=== PATIENT | female | born 1955 | race Caucasian/White ===

== ENCOUNTER 2017-10-16 13:33 | Emergency (ER) | payer MEDICARE ==
[~2017-10-16] VITALS: Ht 167.6 cm; Wt 68.2 kg
[~2017-10-16 13:33] MED LIST: ACET-1600 PO; TRAM50TA2 PO; WARF2.5T PO
[2017-10-16 13:39] VITALS: BP 127/72
[2017-10-16] MEDS ORDERED: SODIUM CHLORIDE FLUSH 10ML SYR IVF ONE (14:30)
[2017-10-16 14:51] LABS: HEMATOCRIT 40.8 % (34.6-47.8); HEMOGLOBIN 13.8 g/dL (11.7-16.4); WHITE BLOOD COUNT 7.4 x10^3/uL (3.4-10)
[2017-10-16 15:01] LABS: BLOOD UREA NITROGEN 17 mg/dL (7-18)
[2017-10-16] MEDS ORDERED: OMNIPAQUE 350 MG/ML, 100ML BOTTLE ONE (15:41)
[2017-10-16] MEDS ORDERED: DEXAMETHASONE 4 MG/ML, 5ML ONE (16:15)
[2017-10-16] MEDS ORDERED: DEXAMETHASONE 4 MG/ML, 1ML PO ONE (16:30)
== END 2017-10-16 16:20 | disposition home or self-care (01) ==
LOC: ED 16:14
DX: L04.0 Acute lymphadenitis of face, head and neck (principal)
CPT/HCPCS: 36415; 70491; 80048; 82040; 85025; 99285; J1100; Q9967

== ENCOUNTER → 2017-11-05 | Outpatient (CLI) | payer MEDICARE ==
[~2017-11-05] MED LIST changes: +AMIT25TA PO; +BUPR150T73 PO; +CHOL100012 PO; +DICL100G19 TP; +FLUO40CA9 PO; +HYDR12.53 PO; +LEVO112T4 PO; +LEVO15TA6 PO; +LISI5TAB7 PO; +MAGN400C PO; +MELA5TAB19 PO; +METO25TA35 PO; +MULT-90 PO; +OMEP40CA6 PO; +PILO5TAB PO; +TRAZ50TA18 PO; +VITA150T PO; +WARF5TAB7 PO
[2017-11-05 13:24] LABS: BASOPHILS # (AUTO) 0.02 x10^3/uL (0-0.1); BASOPHILS % (AUTO) 0 % (0-1); EOSINOPHILS # (AUTO) 0.11 x10^3/uL (0-0.4); EOSINOPHILS % (AUTO) 2 % (1-7); LYMPHOCYTES # (AUTO) 1.85 x10^3/uL (1-3.4); LYMPHOCYTES % (AUTO) 35 % (22-44); MD NO; MEAN CORPUSCULAR HEMOGLOBIN 30.6 pg (27.0-34.8); MEAN CORPUSCULAR HGB CONC 33.2 g/dL (32.4-35.8); MEAN CORPUSCULAR VOLUME 92.3 fL (80-100); MEAN PLATELET VOLUME 7.2 fL (7.4-10.4); MONOCYTES # (AUTO) 0.37 x10^3/uL (0.2-0.8); MONOCYTES % (AUTO) 7 % (2-9); NEUTROPHILS # (AUTO) 2.98 x10^3/uL (1.8-6.8); NEUTROPHILS % (AUTO) 56 % (42-75); PLATELET COUNT 264 x10^3/uL (130-400); RED BLOOD COUNT 4.16 x10^6/uL (3.82-5.3); RED CELL DISTRIBUTION WIDTH 15.3 % (9.6-15.2)
[2017-11-05 13:28] LABS: INTERNATIONAL NORMALIZED RATIO 1.88 (0.93-1.1); PROTHROMBIN TIME 19.3 Seconds (9.6-11.5)
[2017-11-05 13:55] LABS: ALANINE AMINOTRANSFERASE 78 U/L (12-78); ALBUMIN 3.7 g/dL (3.4-5.0); ANION GAP 6 mmol/L (5-15); CALCIUM 9.3 mg/dL (8.5-10.1); CHLORIDE 104 mmol/L (98-107)
[2017-11-05 13:57] LABS: CREATININE 1.01 mg/dL (0.55-1.02)
[2017-11-05 13:58] LABS: ALKALINE PHOSPHATASE 104 U/L (45-117); BILIRUBIN,TOTAL 0.4 mg/dL (0.2-1.0); TOTAL PROTEIN 7.1 g/dL (6.4-8.2)
== END | disposition home or self-care (01) ==
LOC: MERGE 11-03 10:30 → STAR 12:05
PROVIDERS: ATTEND Obstetrics & Gynecology Gynecology
DX: Z01.818 Encounter for other preprocedural examination (principal); R94.31 Abnormal electrocardiogram [ECG] [EKG]; E03.9 Hypothyroidism, unspecified; I10 Essential (primary) hypertension; C50.911 Malignant neoplasm of unspecified site of right female breast; Z79.01 Long term (current) use of anticoagulants
CPT/HCPCS: 36415; 71046; 80053; 85025; 85610; 85730; 93005

== ENCOUNTER 2017-11-13 07:18 | Day surgery (SDC) | payer MEDICARE ==
[~2017-11-13] VITALS: Ht 167.6 cm; Wt 70.0 kg
[~2017-11-13 07:18] MED LIST changes: -AMIT25TA PO; -METO25TA35 PO; -TRAZ50TA18 PO
[2017-11-13] MEDS ORDERED: AMIT25TA PO (08:07)
[2017-11-13] MEDS ORDERED: BUPR150T73 PO (08:07)
[2017-11-13] MEDS ORDERED: METO25TA35 PO (08:07)
[2017-11-13 08:08] VITALS: BP 103/67
[2017-11-13] MEDS ORDERED: LACTATED RINGERS 1,000 ML IV SCH (08:15)
[2017-11-13] MEDS ORDERED: METRONIDAZOLE PMX 500MG/100ML 100 ML IVPB ONE (08:30)
[2017-11-13] MEDS ORDERED: TRAZ50TA18 PO (08:35)
[2017-11-13] MEDS ORDERED: HEPARIN 5,000 UNITS/ML, 1ML ONE (08:43)
[2017-11-13] MEDS ORDERED: HEPARIN 5,000 UNITS/ML, 1ML SQ SCH (09:00)
[2017-11-13 09:03] LABS: INTERNATIONAL NORMALIZED RATIO 1.33 (0.93-1.1); PROTHROMBIN TIME 13.8 Seconds (9.6-11.5)
[2017-11-13] MEDS ORDERED: BUPIVACAINE/PF 0.25% ONE (09:46)
[2017-11-13] MEDS ORDERED: EPINEPHRINE 1 MG/ML, 1ML ONE (09:46)
[2017-11-13] MEDS ORDERED: SILVER NITRATE STICK TP ONE (09:46)
[2017-11-13] MEDS ORDERED: PROPOFOL 10 MG/ML, 20ML ONE (10:13)
[2017-11-13] MEDS ORDERED: LIDOCAINE-MPF 2% ,5ML ONE (10:13)
[2017-11-13] MEDS ORDERED: ROCURONIUM 10 MG/ML,10ML ONE (10:13)
[2017-11-13] MEDS ORDERED: DEXAMETHASONE 4 MG/ML, 1ML ONE ×2 (10:14)
[2017-11-13] MEDS ORDERED: ONDANSETRON 2MG/ML, 2ML ONE (10:14)
[2017-11-13] MEDS ORDERED: BUPIVACAINE/PF-EPI 0.25% 1:200K IM ONE (10:22)
[2017-11-13] MEDS ORDERED: FENTANYL PF 100 MCG/2ML ONE ×2 (10:25→11:24)
[2017-11-13] MEDS ORDERED: ONDANSETRON 2MG/ML, 2ML IVPush PRN (10:30)
[2017-11-13] MEDS ORDERED: FENTANYL PF 100 MCG/2ML IV PRN (10:30)
[2017-11-13] MEDS ORDERED: MEPERIDINE/PF 25MG/0.5ML IVPush PRN (10:30)
[2017-11-13] MEDS ORDERED: HYDROmorphone 1 MG/ML, 1ML IV PRN (10:30)
[2017-11-13] MEDS ORDERED: HYDROcodone/APAP 7.5-325MG/15ML UDC PO PRN (10:30)
[2017-11-13] MEDS ORDERED: OXYcodone 5 MG/5 ML ORAL.SOL UDC PO PRN (10:30)
[2017-11-13] MEDS ORDERED: ACETAMINOPHEN 325 MG TABLET PO PRN (10:30)
[2017-11-13] MEDS ORDERED: GLYCOPYRROLATE 0.2MG/1ML, 5ML ONE (10:44)
[2017-11-13] MEDS ORDERED: NEOSTIGMINE 1 MG/ML, 10ML ONE (10:44)
[2017-11-13] MEDS ORDERED: ACETAMINOPHEN 650 MG/20.3 ML UDC ONE (11:24)
[2017-11-13] MEDS ORDERED: OXYcodone 5 MG/5 ML ORAL.SOL UDC ONE (11:24)
== END 2017-11-13 14:00 | disposition home or self-care (01) ==
LOC: OUT 07:18 → MERGE 09:30 → OUT 14:00
PROVIDERS: ATTEND Obstetrics & Gynecology Gynecology
DX: D27.0 Benign neoplasm of right ovary (principal); D27.1 Benign neoplasm of left ovary; E03.9 Hypothyroidism, unspecified; F41.9 Anxiety disorder, unspecified; I49.5 Sick sinus syndrome; I10 Essential (primary) hypertension; Z15.01 Genetic susceptibility to malignant neoplasm of breast; G25.0 Essential tremor; Z98.890 Other specified postprocedural states; Z79.01 Long term (current) use of anticoagulants; Z85.3 Personal history of malignant neoplasm of breast; Z88.0 Allergy status to penicillin; Z98.51 Tubal ligation status; Z98.84 Bariatric surgery status
CPT/HCPCS: 36415; 58661; 85610; 85730; 88305; J0171; J1100; J2405; J2704; J2710; J3010; J3490; J7120

== ENCOUNTER → 2018-03-18 | Outpatient (CLI) | payer MEDICARE ==
[~2018-03-18] MED LIST changes: +AMIT25TA PO; +METO25TA35 PO; +TRAZ50TA18 PO; +WARF-36 PO; -WARF5TAB7 PO
== END | disposition home or self-care (01) ==
LOC: CFH 08:47
PROVIDERS: ATTEND Specialist
DX: J37.0 Chronic laryngitis (principal); K11.23 Chronic sialoadenitis; R59.0 Localized enlarged lymph nodes; K11.7 Disturbances of salivary secretion
CPT/HCPCS: 70490

== ENCOUNTER 2018-12-16 05:10 | Outpatient (CLI) | payer MEDICARE ==
[~2018-12-16 05:10] MED LIST changes: +HYDR12.517 PO; -HYDR12.53 PO; -TRAZ50TA18 PO; +TRAZ50TA66 PO
== END 2018-12-16 23:59 | disposition home or self-care (01) ==
LOC: RAD 05:10
PROVIDERS: ATTEND Physician Assistant
DX: M79.605 Pain in left leg (principal); D68.51 Activated protein C resistance; Z86.711 Personal history of pulmonary embolism
CPT/HCPCS: 93970

== ENCOUNTER 2019-10-29 17:40 | Emergency (ER) | payer MEDICARE ==
[~2019-10-29] VITALS: Ht 170.2 cm; Wt 79.9 kg
[~2019-10-29 17:40] MED LIST changes: +LEVO125T5 PO; +MELA5TAB14 PO; -MELA5TAB19 PO; +OMEP40CA42 PO; -OMEP40CA6 PO; +PRIM50TA34 PO
--- NOTE | 2019-10-29 18:20 | NUR ---
GRANTS ASSISTANT: PT TO ROOM FROM [facility], AMBULATORY GAIT STEADY
--- NOTE | 2019-10-29 18:26 | NUR ---
PT HERE WITH C/O INTERMITTENT CHEST PAIN TODAY. PT STATES SHE HAS A PACEMAKER AND DURING AN EPISODE OF CHEST PAIN HER PACER TOLD HER TO CALL HER DOCTOR. WHEN SHE CALLED THE PACER COMPANY, THE PERSON ON THE PHONE TOLD HER TO GET EVALUATED AT THE ER. PT STATES "I THINK I JUST WANT TO GET MY LABS DRAWN AND THEN GO HOME." PT EDUCATED ON PLAN. PT DRESSED IN GOWN AND ATTACHED TO MONITOR. ROOM AIR, NAD, CALL LIGHT WITHIN REACH, SIDERAIL X [address]
--- NOTE | 2019-10-29 18:31 | NUR ---
AT BEDSIDE FOR ASSESSMENT.
[2019-10-29 18:35] VITALS: BP 135/66
--- NOTE | 2019-10-29 18:40 | NUR ---
LAB AT BEDSIDE FOR LAB DRAW.
--- NOTE | 2019-10-29 18:41 | NUR ---
PT TO XRAY.
--- NOTE | 2019-10-29 18:49 | NUR ---
PT BACK FROM XRAY.
[2019-10-29 18:52] LABS: BASOPHILS # (AUTO) 0.03 x10^3/uL (0-0.1); BASOPHILS % (AUTO) 1 % (0-1); EOSINOPHILS % (AUTO) 4 % (1-7); LYMPHOCYTES # (AUTO) 2.64 x10^3/uL (1-3.4); LYMPHOCYTES % (AUTO) 47 % (22-44); MD NO; MEAN CORPUSCULAR HEMOGLOBIN 27.9 pg (27.0-34.8); MEAN CORPUSCULAR HGB CONC 32.6 g/dL (32.4-35.8); MEAN CORPUSCULAR VOLUME 85.7 fL (80-100); MEAN PLATELET VOLUME 7.7 fL (7.4-10.4); MONOCYTES # (AUTO) 0.43 x10^3/uL (0.2-0.8); MONOCYTES % (AUTO) 8 % (2-9); NEUTROPHILS # (AUTO) 2.33 x10^3/uL (1.8-6.8); NEUTROPHILS % (AUTO) 41 % (42-75); PLATELET COUNT 231 x10^3/uL (130-400); RED BLOOD COUNT 3.97 x10^6/uL (3.82-5.3); RED CELL DISTRIBUTION WIDTH 15.7 % (9.6-15.2)
--- NOTE | 2019-10-29 18:53 | NUR ---
SENTHIL, HEALTH POLICY ANALYST, AT BEDSIDE TO INTERROGATE PACER.
--- NOTE | 2019-10-29 18:55 | NUR ---
REPORT GIVEN TO FIDELIA PIPER. CARE TRANSFERRED AT THIS TIME.
--- NOTE | 2019-10-29 19:00 | NUR ---
sup: pt pacer interogated. pt tolerated well. primary rn at bs.
--- NOTE | 2019-10-29 19:02 | NUR ---
REPORT RECEIVED FROM [facility].
[2019-10-29 19:04] LABS: ALBUMIN 3.4 g/dL (3.4-5.0); ANION GAP 6 mmol/L (5-15); CHLORIDE 113 mmol/L (98-107); CREATININE 1.24 mg/dL (0.55-1.02)
[2019-10-29 19:08] LABS: TROPONIN I < 0.015 ng/mL (0.000-0.045)
--- NOTE | 2019-10-29 19:37 | NUR ---
Patient given discharge instructions and they have confirmed that they understand the instructions. Patient ambulatory with steady gait.
== END 2019-10-29 19:38 | disposition home or self-care (01) ==
LOC: ED 19:30
DX: R07.89 Other chest pain (principal); R00.2 Palpitations; R06.02 Shortness of breath; Z85.828 Personal history of other malignant neoplasm of skin
CPT/HCPCS: 36415; 71045; 80048; 82040; 84484; 85025; 93005; 99284

== ENCOUNTER 2020-01-10 10:48 | Outpatient (CLI) | payer MEDICARE | END 2020-01-10 23:59 | disposition home or self-care (01) | LOC: CFH 10:48 | PROVIDERS: ATTEND Internal Medicine Cardiovascular Disease | DX: I07.1 Rheumatic tricuspid insufficiency (principal); I26.99 Other pulmonary embolism without acute cor pulmonale; M25.551 Pain in right hip | CPT/HCPCS: 93306 ==

== ENCOUNTER 2021-03-30 17:33 | Emergency (ER) | payer MEDICARE ==
[~2021-03-30] VITALS: Ht 170.2 cm; Wt 79.9 kg
[~2021-03-30 17:33] MED LIST changes: +APIX5TAB PO; +FLUO60TA PO; +HYDR50TA99 PO; +LEVO88TA4 PO; +METO50TA82 PO; -OMEP40CA42 PO; +OMEP40CA8 PO; +ROPI0.254 PO; +TOPI50TA8 PO; +TRAZ150T62 PO; -WARF2.5T PO; +WARF2.5T2 PO
[2021-03-30 17:36] VITALS: BP 144/68
--- NOTE | 2021-03-30 18:15 | NUR ---
PT BACK TO ROOM AT THIS TIME.
[2021-03-30] MEDS ORDERED: OXYcodone/APAP 7.5/325MG TABLET ONE (18:44)
[2021-03-30] MEDS ORDERED: OXYcodone/APAP 7.5/325MG TABLET PO ONE (19:00)
== END 2021-03-30 19:00 | disposition home or self-care (01) ==
LOC: ED 18:38
DX: S63.521A Sprain of radiocarpal joint of right wrist, initial encounter (principal); M54.2 Cervicalgia; W01.0XXA Fall on same level from slipping, tripping and stumbling without subsequent striking against object, initial encounter; Y93.89 Activity, other specified; Y92.830 Public park as the place of occurrence of the external cause; Y99.8 Other external cause status
CPT/HCPCS: 29125; 99283